=== PATIENT | male | born 1995 | race Caucasian/White ===

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

== ENCOUNTER 2017-07-27 12:10 | Emergency (ER) | payer OTHER ==
[~2017-07-27] VITALS: Ht 182.9 cm; Wt 79.0 kg
[2017-07-27 12:12] VITALS: BP 136/67; PULSE 74; RESP 17; TEMP 98.7; O2SAT 100
--- NOTE | 2017-07-27 12:33 | PD ---
HPI Chief Complaint: ENT Complaint Time Seen by Provider: 12:30 Travel History International Travel<30 days: No Contact w/Intl Traveler<30days: No Traveled to known affect area: No History of Present Illness HPI 22-year-old male presents emergency department for evaluation of sore throat since yesterday with sensation that it is closing today. Patient states she has had some sinus congestion over the last 2-3 days. He states his throat hurts today, 10 out of 10. States it is difficult to swallow. He denies any fever or chills. He has had no cough or chest congestion. He has no other symptoms to report. PFSH Past Medical History ADHD: No Cancer: Yes Cardiovascular Problems: No Diabetes: No Diminished Hearing: No Headaches: No Musculoskeletal: Yes (Fractures - clavicle, left leg) Psychiatric: No Respiratory: Yes (HX OF BRONCHITIS) Immunizations Current: Yes Migraines: No Seizures: No Thyroid Disease: No Ulcer: No Past Surgical History Other Surgery: Yes (RIGHT WRIST) Social History Alcohol Use: No Tobacco Use: No Substance Use: No (PATIENT DENIES) Allergies-Medications (Allergen,Severity, Reaction): Coded Allergies: No Known Allergies (Verified Adverse Reaction, Unknown, 07/27/17) Reported Meds & Prescriptions Reported Meds & Active Scripts Active Medrol Dosepak (Methylprednisolone) 4 Mg Dspk 4 Mg PO DIRECTED Per Pharmacist direction Augmentin (Amoxicillin-Clavulanate) 875-125 Mg Tab 1 Tab PO BID 10 Days Review of Systems Except as stated in HPI: all other systems reviewed are Neg Physical Exam Narrative GENERAL: Well-nourished, well-developed male patient, no acute distress SKIN: Focused skin assessment warm/dry. HEAD: Normocephalic. EYES: No scleral icterus. No injection or drainage. ENT: Mucosa pink and moist. 3+ tonsillar edema with significant erythema, the right tonsil is larger than the left. No uvular edema. No uvular, palatal, or tonsillar deviation. Airway patent. Nasal turbinates appear normal without nasal blood, purulent drainage or septal hematoma. NECK: Supple, trachea midline. Anterior cervical lymphadenopathy. CARDIOVASCULAR: Tachycardic rate and rhythm without murmurs, gallops, or rubs. RESPIRATORY: Breath sounds equal bilaterally. No accessory muscle use. GASTROINTESTINAL: Abdomen soft, non-tender, nondistended. MUSCULOSKELETAL: No cyanosis, or edema. BACK: Nontender without obvious deformity. No CVA tenderness. Data Data Last Documented VS Vital Signs Date Time Temp Pulse Resp B/P (MAP) Pulse Ox O2 Delivery O2 Flow Rate FiO2 07/27/17 12:12 98.7 74 17 136/67 (90) 100 Orders Orders Group A Rapid Strep Screen (07/27/17 12:40) Dexamethasone Inj (Decadron Inj) (07/27/17 12:45) Iv Access Insert/Monitor (07/27/17 12:45) Complete Blood Count With Diff (07/27/17 12:45) Basic Metabolic Panel (Bmp) (07/27/17 12:45) Sodium Chlor 0.9% 1000 Ml Inj (Ns 1000 M (07/27/17 12:45) Ampicillin-Sulbactam Inj (Unasyn Inj) (07/27/17 12:45) Dexamethasone Inj (Decadron Inj) (07/27/17 12:45) Strep Culture (Group A) (07/27/17 13:05) Ed Discharge Order (07/27/17 13:53) Labs Laboratory Tests Test 07/27/17 13:05 White Blood Count 15.7 TH/MM3 Red Blood Count 5.23 MIL/MM3 Hemoglobin 15.5 GM/DL Hematocrit 46.5 % Mean Corpuscular Volume 88.9 FL Mean Corpuscular Hemoglobin 29.7 PG Mean Corpuscular Hemoglobin Concent 33.5 % Red Cell Distribution Width 13.7 % Platelet Count 177 TH/MM3 Mean Platelet Volume 9.8 FL Neutrophils (%) (Auto) 74.9 % Lymphocytes (%) (Auto) 12.2 % Monocytes (%) (Auto) 12.5 % Eosinophils (%) (Auto) 0.2 % Basophils (%) (Auto) 0.2 % Neutrophils # (Auto) 11.8 TH/MM3 Lymphocytes # (Auto) 1.9 TH/MM3 Monocytes # (Auto) 2.0 TH/MM3 Eosinophils # (Auto) 0.0 TH/MM3 Basophils # (Auto) 0.0 TH/MM3 CBC Comment DIFF FINAL Differential Comment Blood Urea Nitrogen 7 MG/DL Creatinine 0.76 MG/DL Random Glucose 77 MG/DL Calcium Level 9.3 MG/DL Sodium Level 140 MEQ/L Potassium Level 4.1 MEQ/L Chloride Level 106 MEQ/L Carbon Dioxide Level 26.9 MEQ/L Anion Gap 7 MEQ/L Estimat Glomerular Filtration Rate 131 ML/MIN [facility] Medical Decision Making Medical Screen Exam Complete: Yes Emergency Medical Condition: Yes Medical Record Reviewed: Yes Differential Diagnosis Pharyngitis strep versus viral versus peritonsillar abscess versus cellulitis Narrative Course 22-year-old male presents to the emergency department for evaluation of sore throat. Patient appears without distress. He does have significant tonsillar edema, however airway and patient is able to control his secretions. I discussed the patient with my attending physician. Lab work is ordered as well as rapid strep screen. He is given Decadron and Unasyn. Laboratory Tests Test 07/27/17 13:05 White Blood Count 15.7 TH/MM3 Red Blood Count 5.23 MIL/MM3 Hemoglobin 15.5 GM/DL Hematocrit 46.5 % Mean Corpuscular Volume 88.9 FL Mean Corpuscular Hemoglobin 29.7 PG Mean Corpuscular Hemoglobin Concent 33.5 % Red Cell Distribution Width 13.7 % Platelet Count 177 TH/MM3 Mean Platelet Volume 9.8 FL Neutrophils (%) (Auto) 74.9 % Lymphocytes (%) (Auto) 12.2 % Monocytes (%) (Auto) 12.5 % Eosinophils (%) (Auto) 0.2 % Basophils (%) (Auto) 0.2 % Neutrophils # (Auto) 11.8 TH/MM3 Lymphocytes # (Auto) 1.9 TH/MM3 Monocytes # (Auto) 2.0 TH/MM3 Eosinophils # (Auto) 0.0 TH/MM3 Basophils # (Auto) 0.0 TH/MM3 CBC Comment DIFF FINAL Differential Comment Blood Urea Nitrogen 7 MG/DL Creatinine 0.76 MG/DL Random Glucose 77 MG/DL Calcium Level 9.3 MG/DL Sodium Level 140 MEQ/L Potassium Level 4.1 MEQ/L Chloride Level 106 MEQ/L Carbon Dioxide Level 26.9 MEQ/L Anion Gap 7 MEQ/L Estimat Glomerular Filtration Rate 131 ML/MIN Patient is a leukocytosis of 15.7 with neutrophilia. This is likely infectious in nature. I discussed with my attending physician. Patient wants to be discharged. He will be started on Augmentin and oral steroids. Patient is instructed to return in 24 hours for reevaluation. Diagnosis Primary Impression: Peritonsillar abscess Referrals: Ear / Nose / Throat Specialist Primary Care Physician Patient Instructions: General Instructions, Peritonsillar Abscess (ED) Departure Forms: Tests/Procedures, Work Release Enter return to work date: Jul 30, 2017 Additional Instructions: Warm salt water gargles Tylenol or ibuprofen as directed as needed on the package for fever and/or pain Return in 24 hours for reevaluation Return immediately with acute worsening symptoms Med/Other Pt SpecificInfo: Prescription(s) given Scripts Methylprednisolone Dosepak (Medrol Dosepak) 4 Mg Dspk 4 MG PO DIRECTED, #1 DSPK 0 Refills Per Pharmacist direction Prov: Zoe Romo 07/27/17 Amoxicillin-Clavulanate (Augmentin) 875-125 Mg Tab 1 TAB PO BID for Infection for 10 Days, #20 TAB 0 Refills Prov: Zoe Romo 07/27/17 Disposition: 01 DISCHARGE HOME Condition: Stable Zoe Romo Jul 27, 2017 12:33
[2017-07-27] MEDS ORDERED: AMPICILLIN-SULBACTAM INJ 3 GM in SODIUM CHLORIDE 0.9% INJ 100 ML IV ONE (12:45)
[2017-07-27] MEDS ORDERED: SODIUM CHLOR 0.9% 1000 ML INJ 1,000 ML IV ONE (12:45)
[2017-07-27] MEDS ORDERED: DEXAMETHASONE SOD PHOS 4 MG/ML VIAL IM ONE (12:45)
[2017-07-27] MEDS ORDERED: DEXAMETHASONE SOD PHOS 20 MG/5 ML VIAL IV PUSH ONE (12:45)
[2017-07-27 13:26] LABS: AUTOMATED NEUTROPHIL # 11.8 TH/MM3 (1.8-7.7); BASOPHIL % 0.2 % (0.0-2.0); EOSINOPHIL % 0.2 % (0.0-4.0); HEMATOCRIT 46.5 % (39.0-51.0); HEMOGLOBIN 15.5 GM/DL (13.0-17.0); LYMPH % 12.2 % (9.0-44.0); LYMPHOCYTE # 1.9 TH/MM3 (1.0-4.8); MEAN CELL VOLUME 88.9 FL (80.0-100.0); MEAN CORPUSCULAR HEMOGLOBIN 29.7 PG (27.0-34.0); MEAN CORPUSCULAR HGB CONC 33.5 % (32.0-36.0); MEAN PLATELET VOLUME 9.8 FL (7.0-11.0); MONO % 12.5 % (0.0-8.0); NEUT % 74.9 % (16.0-70.0); PLATELET COUNT 177 TH/MM3 (150-450); RED BLOOD COUNT 5.23 MIL/MM3 (4.50-5.90); RED CELL DISTRIBUTION WIDTH 13.7 % (11.6-17.2); WHITE BLOOD COUNT 15.7 TH/MM3 (4.0-11.0)
[2017-07-27 13:40] LABS: BICARBONATE 26.9 MEQ/L (21.0-32.0); CALCIUM 9.3 MG/DL (8.5-10.1); CREATININE 0.76 MG/DL (0.60-1.30)
[2017-07-27] MEDS ORDERED: AUGM875T3 PO (13:56)
[2017-07-27] MEDS ORDERED: MEDR4PAK PO (13:56)
== END 2017-07-27 14:36 | disposition home or self-care (01) ==
LOC: NEPD 12:10
DX: J36 Peritonsillar abscess (principal); R09.81 Nasal congestion
CPT/HCPCS: 80048; 85025; 87081; 87880; 96365; 96375; 99284; J0295; J1100; J7030